=== PATIENT | female | born 1965 | race Caucasian/White ===

== ENCOUNTER 2019-02-26 10:15 | Outpatient (CLI) | payer BC ==
--- NOTE | 2019-02-26 10:56 | BD ---
DEXA BONE DENSITY SCAN: DATE: 02/26/2019. COMPARISON: None. HISTORY: Postmenopausal female undergoing screening for osteoporosis. FINDINGS: L1 0.841 -1.4 L2 0.900 -1.2 L3 0.872 -1.9 L4 0.932 -1.2 total 0.889 -1.4 femoral neck 0.656 -1.7 tot al 0.9, 560.1 Lumbar Spine: BMD (g/cm2) L1 0.841 T-Score: -1.4 L2 0.900 T-Score: -1.2 L3 0.872 T-Score: -1.9 L4 0.932 T-Score: -1.2 L1-L4 0.889 T-Score: -1.4 Femoral Neck: 0.656 T-Score: -1.7 Total Femur: 0.956 T-Score: 0.1 FRAX-WHO fracture risk assessment tool reports a 10 year fracture risk of 14% for major osteoporotic fracture and 1.3% for hip fracture in an untreated patient. IMPRESSION: Femoral neck and lumbar spine osteopenia correlating with a moderately increased risk for fracture. Transcribed Date/Time: 02/26/2019 11:19 AM
--- NOTE | 2019-02-26 11:10 | MMO ---
Bilateral MAMMO Bilat Screen [facility]. CLINICAL HISTORY: Patient is 53 years old and is seen for screening. The patient has the following family history of breast cancer: 2 cousin females. The patient has no personal history of cancer. VIEWS: The views performed were: bilateral craniocaudal with tomosynthesis and bilateral mediolateral oblique with tomosynthesis. FILMS COMPARED: The present examination has been compared to a prior imaging study performed at [facility] on 02/22/2010. This study has been interpreted with the assistance of computer-aided detection. MAMMOGRAM FINDINGS: There are scattered fibroglandular densities. There are benign appearing calcifications seen in both breasts. There are no suspicious masses, suspicious calcifications, or new areas of architectural distortion. IMPRESSION: THERE IS NO MAMMOGRAPHIC EVIDENCE OF MALIGNANCY. A ROUTINE FOLLOW-UP MAMMOGRAM IN 1 YEAR IS RECOMMENDED. THE RESULTS OF THIS EXAM WERE SENT TO THE PATIENT. ACR BI-RADS Category 2 - Benign finding MAMMOGRAPHY NOTE: 1. A negative mammogram report should not delay a biopsy if a dominant of clinically suspicious mass is present. 2. Approximately 10% to 15% of breast cancers are not detected by mammography. 3. Adenosis and dense breasts may obscure an underlying neoplasm. Reported by: PATRICIA VERDUZCO MD Electonically Signed: [id number]
== END 2019-02-26 10:16 | disposition home or self-care (01) ==
LOC: BICMAMMO 10:15
PROVIDERS: ATTEND Specialist
DX: Z12.31 Encounter for screening mammogram for malignant neoplasm of breast (principal); M81.0 Age-related osteoporosis without current pathological fracture; M85.89 Other specified disorders of bone density and structure, multiple sites; Z80.3 Family history of malignant neoplasm of breast
CPT/HCPCS: 77063; 77067; 77080

== ENCOUNTER 2020-09-30 07:59 | Day surgery (SDC) | payer BC ==
[2020-09-29 13:34] VITALS: BMI 32.4
[2020-09-30] MEDS ORDERED: Levofloxacin 500 mg/D5W 100 ml Premix Bag ONE (09:41)
[2020-09-30] MEDS ORDERED: Iothalamate Meglumine 60% 30 ML VIAL FS ONE (10:05)
[2020-09-30] MEDS ORDERED: Fentanyl 100 MCG/2 ML VIAL ONE (10:16)
[2020-09-30] MEDS ORDERED: PROPOFOL 200 MG/20 ML VIAL ONE (10:25)
[2020-09-30] MEDS ORDERED: Ondansetron PF 4 MG/2 ML Vial ONE (10:25)
[2020-09-30] MEDS ORDERED: Glycopyrrolate 0.2 MG/ML 5 ML SYRINGE ONE (10:25)
[2020-09-30] MEDS ORDERED: PHENYLEPHRINE-NS 100 MCG/ML 10 ML SYRINGE ONE (10:25)
[2020-09-30] MEDS ORDERED: Lidocaine 1% PF 5 ML VIAL ONE (10:25)
[2020-09-30] MEDS ORDERED: Dexamethasone 20 MG/5 ML VIAL ONE (10:25)
[2020-09-30] MEDS ORDERED: Ketorolac Tromethamine 30 MG/ML VIAL ONE (10:59)
[2020-09-30] MEDS ORDERED: Phenazopyridine HCl 100 MG TAB ONE (11:01)
[2020-09-30] MEDS ORDERED: Oxybutynin 5 MG TAB ONE (11:01)
== END 2020-09-30 13:15 | disposition home or self-care (01) ==
LOC: SDC 07:59
PROVIDERS: ATTEND Urology
PROC: 0T768DZ Dilation of Right Ureter with Intraluminal Device, Via Natural or Artificial Opening Endoscopic (ICD-10-PCS; principal; 2020-09-30)
PROC: 0TC68ZZ Extirpation of Matter from Right Ureter, Via Natural or Artificial Opening Endoscopic (ICD-10-PCS; principal; 2020-09-30)
DX: N13.2 Hydronephrosis with renal and ureteral calculous obstruction (principal); F17.210 Nicotine dependence, cigarettes, uncomplicated; Z79.84 Long term (current) use of oral hypoglycemic drugs; Z79.899 Other long term (current) drug therapy
CPT/HCPCS: 74420; 82365; 88300; J1100; J1885; J1956; J2405; J2704; J3010

== ENCOUNTER 2020-10-21 15:36 | Outpatient (CLI) | payer BC | END 2020-10-21 15:37 | disposition home or self-care (01) | LOC: BICULT 15:36 | PROVIDERS: ATTEND Urology | DX: N20.1 Calculus of ureter (principal) | CPT/HCPCS: 76770 ==

== ENCOUNTER 2021-11-23 13:28 | Outpatient (CLI) | payer BC | END 2021-11-23 13:29 | disposition home or self-care (01) | LOC: BICMAMMO 13:28 | PROVIDERS: ATTEND Specialist | DX: R92.8 Other abnormal and inconclusive findings on diagnostic imaging of breast (principal) | CPT/HCPCS: G0279 ==

== ENCOUNTER 2022-10-15 09:41 | Outpatient (CLI) | payer BC | END 2022-10-15 09:42 | disposition home or self-care (01) | LOC: BICMAMMO 09:41 | PROVIDERS: ATTEND Specialist | DX: N63.31 Unspecified lump in axillary tail of the right breast (principal); R92.1 Mammographic calcification found on diagnostic imaging of breast; N63.10 Unspecified lump in the right breast, unspecified quadrant | CPT/HCPCS: 77066; G0279 ==

== ENCOUNTER 2022-12-03 15:14 | Outpatient (CLI) | payer BC | END 2022-12-03 15:15 | disposition home or self-care (01) | LOC: BICRAD 15:14 | PROVIDERS: ATTEND Specialist | DX: M25.511 Pain in right shoulder (principal) ==

== ENCOUNTER 2024-08-29 11:32 | Inpatient (IN) | payer BC ==
[2024-08-29 11:57] LABS: #Basophils 0.03 10x3/uL (0.0-0.2); #Eosinophils 0.06 10x3/uL (0.0-0.7); #Monocytes 0.61 10x3/uL (0.11-0.59); #Neutrophils 2.98 10x3/uL (1.40-6.50); %Basophils 0.5 % (0.0-1.0); %Eosinophils 0.9 % (0.0-10.0); %Lymphocytes 43.3 % (21.0-51.0); %Monocytes 9.4 % (0.0-10.0); %Neutrophils 45.7 % (42.0-75.0); Hematocrit 44.7 % (36.0-47.0); Hemoglobin 14.2 g/dL (12.0-16.0); Mean Corpuscular HGB CONC 31.8 g/dL (32.0-36.0); Mean Corpuscular Hemoglobin 26.3 pg (27.0-31.0); Mean Corpuscular Volume 82.8 fL (78.0-98.0); Mean Platelet Volume 10.1 fL (7.4-10.4); Platelet Count 233 10x3/uL (130-400); RBC Distribution Width 13.7 % (11.5-14.5); White Blood Cell (WBC) Count 6.51 10x3/uL (4.8-10.8)
[2024-08-29 12:21] LABS: ALT (SGPT) 22 U/L (Less than 34); AST (SGOT) 24 U/L (11-34); Albumin 4.3 g/dL (3.1-4.5); Alkaline Phosphatase 77 U/L (40-110); Anion Gap 12 mmol/L (10-20); BUN (Urea Nitrogen) 16 mg/dL (9.8-20.1); Bilirubin, Total 0.3 mg/dL (0.3-1.2); Calc. Creatinine Clearance 0 mL/min (70-130); Calcium 10.5 mg/dL (7.8-10.44); Carbon Dioxide 26 mmol/L (22-29); Chloride 106 mmol/L (98-107); Estimated GFR 90; Globulin 2.8 g/dL (2.4-3.5); Glucose 103 mg/dL (70-105); Lipase 17 U/L (8-78); Potassium 3.9 mmol/L (3.5-5.1); Protein, Total 7.1 g/dL (6.0-8.3); Sodium 140 mmol/L (136-145)
[2024-08-29 12:22] LABS: Troponin I 0.087 ng/mL (< 0.028)
[2024-08-29 12:50] LABS: Bacteria/HPF None Seen HPF (None Seen); Bilirubin Negative (Negative); Blood, Urine Negative (Negative); CAUTI Indications for Culture Dysuria,urgency,freq; Clarity Clear (Clear); Glucose, Urine (Dipstick) Normal (Negative); Ketone, Urine Negative (Negative); Leukocyte Negative Leu/uL (Negative); Nitrite Negative (Negative); Protein, Urine (Dipstick) Negative (Neg-Trace); RBC/HPF 0-3 HPF (0-3); Specific Gravity, Urine 1.021 (1.002-1.036); Squamous Epithelial 0-3 HPF (0-3); Urobilinogen Normal mg/dL (Less than 2); WBC/HPF 0-3 HPF (0-3); pH, Urine 6.5 (5.0-9.0)
[2024-08-29 12:58] LABS: Urine Culture Reflex No No
[2024-08-29] MEDS ORDERED: Enoxaparin 80 MG (0.8 mL) SYRINGE ONE (13:42)
[2024-08-29] MEDS ORDERED: Nitroglycerin 0.4 MG TAB (25 Tab Bottle) SL PRN (14:28)
[2024-08-29] MEDS ORDERED: Acetaminophen 325 MG TAB PO PRN (14:30)
[2024-08-29] MEDS ORDERED: hydrALAZINE 25 MG TAB PO PRN ×2 (14:31→15:58)
[2024-08-29] MEDS ORDERED: Mag-Al 1200 mg/1200 mg/30 ML UDCUP PO PRN (15:14)
[2024-08-29 15:58] VITALS: BMI 34.2
[2024-08-29 16:59] LABS: Phosphorus 2.7 mg/dL (2.5-4.5)
[2024-08-29 17:01] LABS: Magnesium 1.8 mg/dL (1.6-2.6)
[2024-08-29] MEDS: Pantoprazole 40 MG DR.TAB PO SCH (17:10)
[2024-08-29] MEDS: Calcium Carbonate 500 MG ChewTAB PO PRN (17:10)
[2024-08-29] MEDS ORDERED: Electrolyte Replacement Protocol 1 EACH FS SCH (19:17)
[2024-08-29 19:44] LABS: Troponin I 0.068 ng/mL (< 0.028)
[2024-08-29] MEDS: Famotidine 20 MG TAB PO SCH (19:48)
[2024-08-29] MEDS: Magnesium 2 GM/50 ML(in water) 2 GM in Premix 1 BAG IVPB SCH (19:48)
[2024-08-29] MEDS ORDERED: Nitroglycerin 2% Ointment 1 INCH/1 GM Packet TOP SCH (22:00)
[2024-08-30 06:09] LABS: Anion Gap 12 mmol/L (10-20); BUN (Urea Nitrogen) 13 mg/dL (9.8-20.1); Calc. Creatinine Clearance 107 mL/min (70-130); Calcium 9.3 mg/dL (7.8-10.44); Carbon Dioxide 22 mmol/L (22-29); Cardiac Risk 6.9 (Less than 4.5); Chloride 108 mmol/L (98-107); Cholesterol 165 mg/dl (< 200 Desired); Estimated GFR 89; Glucose 111 mg/dL (70-105); HDL Cholesterol 24 mg/dL (>60 Neg Risk); Potassium 3.6 mmol/L (3.5-5.1); Sodium 138 mmol/L (136-145); Triglycerides 710 mg/dL (Less than 150)
[2024-08-30] MEDS: Magnesium 2 GM/50 ML(in water) 2 GM in Premix 1 BAG IVPB SCH (07:57)
[2024-08-30] MEDS: Aspirin 81 mg Enteric Coated Tablet PO SCH (08:02)
[2024-08-30] MEDS: Pantoprazole 40 MG DR.TAB PO SCH (08:02)
[2024-08-30] MEDS ORDERED: Regadenoson 0.4 MG/5 ML SYRINGE ONE (10:23)
[2024-08-30] MEDS: Atorvastatin Calcium 40 MG TAB PO SCH (21:29)
[2024-08-30] MEDS: Metoprolol Tartrate 25 MG TAB PO SCH (21:29)
[2024-08-30] MEDS: traZODone HCl 50 MG TAB PO SCH (21:29)
[2024-08-30] MEDS: Enoxaparin 40 MG (0.4 mL) SYRINGE SC SCH (21:30)
[2024-08-31 06:24] LABS: Anion Gap 9 mmol/L (10-20); BUN (Urea Nitrogen) 13 mg/dL (9.8-20.1); Calc. Creatinine Clearance 116 mL/min (70-130); Calcium 9.1 mg/dL (7.8-10.44); Carbon Dioxide 23 mmol/L (22-29); Chloride 111 mmol/L (98-107); Estimated GFR 97; Glucose 114 mg/dL (70-105); Potassium 3.8 mmol/L (3.5-5.1); Sodium 139 mmol/L (136-145)
[2024-08-31] MEDS: Lisinopril 20 MG TAB PO SCH (09:15)
[2024-08-31] MEDS: Fenofibrate Nanocrystallized 145 MG TAB PO SCH (09:45)
[2024-08-31] MEDS ORDERED: Iopamidol 370 76% 100 ML VIAL ONE (10:04)
[2024-08-31] MEDS ORDERED: Communication Order-Pharmacy FS PRN (12:00)
[2024-08-31] MEDS: Sodium Chloride 0.9% 1,000 ML IV SCH (12:16)
[2024-08-31] MEDS ORDERED: Lidocaine 1% PF 5 ML VIAL ONE (12:18)
[2024-08-31] MEDS ORDERED: Heparin 10,000 UNITS/ 10 ML VIAL ONE (12:24)
[2024-08-31] MEDS ORDERED: fentaNYL 50 mcg/mL 1 mL Vial ONE (12:42)
[2024-08-31] MEDS ORDERED: Midazolam HCl 2 mg/2 ml Vial ONE (12:42)
[2024-08-31] MEDS ORDERED: Adenosine 6 mg (2 mL) VIAL ONE (12:43)
[2024-08-31] MEDS ORDERED: Verapamil 5 MG/2 ML VIAL ONE (12:43)
[2024-08-31] MEDS ORDERED: Acetaminophen/Codeine 30-300mg Tablet PO PRN (13:26)
[2024-08-31] MEDS ORDERED: Sodium Chloride 0.9% 200 ML IV PRN (13:26)
[2024-08-31] MEDS: Sodium Chloride 0.9% 500 ML IV SCH (14:05)
[2024-08-31 15:49] VITALS: BP 142/81; TEMP 97.8
== END 2024-08-31 18:02 | disposition home or self-care (01) | DRG 287 ==
LOC: ERS 11:32 → OBS 14:04 → OBSVTOIN 08-30 14:01
PROVIDERS: ADMIT Internal Medicine; ATTEND Emergency Medicine
PROC: B2111ZZ Fluoroscopy of Multiple Coronary Arteries using Low Osmolar Contrast (ICD-10-PCS; principal; 2024-08-31)
PROC: 4A023N7 Measurement of Cardiac Sampling and Pressure, Left Heart, Percutaneous Approach (ICD-10-PCS; 2024-08-31)
PROC: B2151ZZ Fluoroscopy of Left Heart using Low Osmolar Contrast (ICD-10-PCS; 2024-08-31)
DX: R07.89 Other chest pain (principal); K21.9 Gastro-esophageal reflux disease without esophagitis; I10 Essential (primary) hypertension; E11.9 Type 2 diabetes mellitus without complications; E78.5 Hyperlipidemia, unspecified; F10.90 Alcohol use, unspecified, uncomplicated; F90.9 Attention-deficit hyperactivity disorder, unspecified type; E83.52 Hypercalcemia; Z98.890 Other specified postprocedural states; Z83.3 Family history of diabetes mellitus; I25.10 Atherosclerotic heart disease of native coronary artery without angina pectoris; Z82.49 Family history of ischemic heart disease and other diseases of the circulatory system; Z98.51 Tubal ligation status; Z87.891 Personal history of nicotine dependence; Z79.899 Other long term (current) drug therapy; Z79.82 Long term (current) use of aspirin; Z87.442 Personal history of urinary calculi; R79.89 Other specified abnormal findings of blood chemistry
CPT/HCPCS: 36415; 71045; 78452; 80048; 80053; 80061; 81001; 83690; 83735; 84100; 84484; 85025; 85379; 93005; 93017; 93306; 93458; 96372; 96374; 96376; 99152; A9502; C1769; C1887; G0378; J0153; J1644; J1650; J2250; J2785; J3010; J3475; J7030; Q9967